=== PATIENT | female | born 1960 | race Caucasian/White ===

== ENCOUNTER 2017-07-31 12:55 | Emergency (ER) | payer OTHER ==
[2017-07-31 14:00] VITALS: BP 137/85
--- NOTE | 2017-07-31 14:45 | UC ---
Upper Extremity HPI - History of Current Complaint Chief Complaint: UCEar Stated Complaint: RIGHT EAR COMPLAINT Time Seen by Provider: 07/31/17 14:44 - Allergies/Home Medications Allergies/Adverse Reactions: Allergies Allergy/AdvReac Type Severity Reaction Status Date / Time No Known Allergies Allergy Verified 07/31/17 13:54 Home Medications: Home Medications NK [No Home Medications Reported] 07/31/17 [History Confirmed 07/31/17] PMH/Surg Hx/FS Hx/Imm Hx - Surgical History Surgical History: None - Social History Alcohol Use: Weekly Substance Use Type: None Smoking Status (MU): Former Smoker When Did the Patient Quit Smoking/Using Tobacco: 22 YEARS AGO Physical Exam Vital Signs: Initial Vital Signs Temp 97.7 F 07/31/17 13:55 Pulse 92 07/31/17 13:55 Resp 18 07/31/17 13:55 BP 137/85 07/31/17 13:55 Pulse Ox 100 07/31/17 13:55 Discharge - Discharge Plan Referrals: Non Staff,Doctor [Primary Care Provider] -
--- NOTE | 2017-07-31 14:46 | UC ---
Ear Complaint HPI - HPI Summary HPI Summary: 57 y/o female presents to the urgent care c/o Rt ear feels plugged with mild pain for the past 3 days. Pt states she has used the Debrox otic drops w/o any improvement. Pt states decrease hearing. Pt states she had a common cold about a week ago which has resolved. Sometimes she feels a ringing on that ear. Pt denies fever, RAMOS, dizziness, N/V/D, abdominal pain, SOB, chest pain. - History of Current Complaint Chief Complaint: UCEar Stated Complaint: RIGHT EAR COMPLAINT Time Seen by Provider: 07/31/17 14:44 Hx Obtained From: Patient ?: No Onset/Duration: Gradual Onset, Lasting Days - 3 days, Still Present Severity Initially: Mild Severity Currently: Mild Pain Intensity: 2 Pain Scale Used: 0-10 Numeric Aggravating Factors: Nothing Alleviating Factors: OTC Meds Associated Signs/Symptoms: Positive: Hearing Loss, URI Symptoms - Allergies/Home Medications Allergies/Adverse Reactions: Allergies Allergy/AdvReac Type Severity Reaction Status Date / Time No Known Allergies Allergy Verified 07/31/17 13:54 PMH/Surg Hx/FS Hx/Imm Hx Previously Healthy: Yes - Pt denies PMHX - Surgical History Surgical History: None - Family History Known Family History: Positive: None - Pt denies FMHX - Social History Occupation: Employed Full-time Lives: With Family Alcohol Use: Weekly Substance Use Type: None Smoking Status (MU): Former Smoker When Did the Patient Quit Smoking/Using Tobacco: 22 YEARS AGO Review of Systems Constitutional: Negative - RT ear pluged w/ decrese hearing and mild pain Skin: Negative Eyes: Negative ENT: Ear Ache - RT Respiratory: Negative Cardiovascular: Negative Gastrointestinal: Negative Genitourinary: Negative Motor: Negative Neurovascular: Negative Musculoskeletal: Negative Neurological: Negative Psychological: Negative Is Patient Immunocompromised?: No All Other Systems Reviewed And Are Negative: Yes Physical Exam Triage Information Reviewed: Yes Vital Signs: Initial Vital Signs Temp 97.7 F 07/31/17 13:55 Pulse 92 07/31/17 13:55 Resp 18 07/31/17 13:55 BP 137/85 07/31/17 13:55 Pulse Ox 100 07/31/17 13:55 - Additional Comments Vital signs: reviewed General: well developed, well nourished female sitting in the examining table w/ o any apparent distress. Skin: Startex, warm and dry, no evidence of atopic dermatitis, psoriasis, seborrhea. HEENT: -Head: atraumatic, non tender; no scalp dermatitis. -Eyes: sclera and conjunctiva clear, PERRLA, EOMI -Ears: no pre- or postauricular lymphadenopathy or erythema; RT external ear canal with erythema and yellowish purulent discharge, pinna tenderness on palpation, Rt TM WNL, LF external ear canal clear and LF TM WNL. l w/out bulging or retraction. Good light reflex. No fluid level, vesicles, or bullae. No perforation. -Nose/Face: erythematous and edematous nasal mucosa with clear rhinorrhea, no frontal or maxillary sinus tender to palpation. -Mouth/Throat: Mucous membrane moist, posterior pharynx clear, no erythema or exudates. Neck: supple, FROM, nontender, no lymphadenopathy, no meningismus. Chest: Clear to auscultation, normal breath sounds Abd: soft, Bowel sounds active, Nontender. Back: no spinal or CVAT Neuro: A&O x4, GCS 15, no focal neuro deficits, normal behavior for age. Ear Complaint Course/Dx - Course Course Of Treatment: 57 y/o female presents to the urgent care c/o Rt ear feels plugged with mild pain for the past 3 days. Pt states she has used the Debrox otic drops w/o any improvement. Pt states decrease hearing. Pt states she had a common cold about a week ago which has resolved. Sometimes she feels a ringing on that ear. Pt denies fever, RAMOS, dizziness, N/V/D, abdominal pain, SOB, chest pain.Hx obtained.Pt with a Right otitis externa on examination. Pt Rx Ciprofloxacin otic drops. Advised to take tylenol PO OTC for pain. If symptoms do not improve or worsen to return to the urgent care or f/u with PCP for further management. Pt understood and agreed with D/C instructions. - Differential Dx/Diagnosis Differential Diagnosis/HQI/PQRI: Cerumen Impaction, Foreign Body, Otitis Externa , Otitis Media, Perforated TM, Other - vertigo. laberynthitis, BPPV Provider Diagnoses: 1- RT acute otitis externa Discharge - Discharge Plan Condition: Stable Disposition: HOME Prescriptions: Ciprofloxacin HCl (Otic) [Ciprofloxacin 0.2% EAR DROPS] 0.2 % OT BID #1 loco Patient Education Materials: Otitis Externa (ED) Referrals: [facility] [place] [facility] [Outside] - 1 Week Additional Instructions: 1-Please apply otic antibiotic on your Rt ear as directed. 2-Take Tylenol PO q4-6hrs after meals if you develop pain. 3-If symptoms do not improve or worsen please f/u with your PCP or return to the urgent care for further evaluation and treatment.
== END 2017-07-31 15:10 | disposition home or self-care (01) ==
LOC: UCCORT 12:55
DX: H60.501 Unspecified acute noninfective otitis externa, right ear (principal); Z87.891 Personal history of nicotine dependence
CPT/HCPCS: 99202; G0463